=== PATIENT | female | born 1930 | race Caucasian/White ===

== ENCOUNTER → 2018-08-08 | Outpatient (CLI) | payer OTHER, BC | LOC: FIMAGING 11:06 | PROVIDERS: ATTEND Internal Medicine | DX: M48.07 Spinal stenosis, lumbosacral region (principal); M46.97 Unspecified inflammatory spondylopathy, lumbosacral region; M43.17 Spondylolisthesis, lumbosacral region; M51.36 Other intervertebral disc degeneration, lumbar region ==

== ENCOUNTER → 2018-09-01 | Outpatient (CLI) | payer OTHER, BC | LOC: FIMAGING 13:44 | PROVIDERS: ATTEND Physical Medicine & Rehabilitation | DX: M48.07 Spinal stenosis, lumbosacral region (principal); M99.73 Connective tissue and disc stenosis of intervertebral foramina of lumbar region; M51.36 Other intervertebral disc degeneration, lumbar region; M51.37 Other intervertebral disc degeneration, lumbosacral region; M12.88 Other specific arthropathies, not elsewhere classified, other specified site; M48.061 Spinal stenosis, lumbar region without neurogenic claudication; M48.04 Spinal stenosis, thoracic region ==